=== PATIENT | female | born 1995 | race Caucasian/White ===

== ENCOUNTER 2023-01-17 13:02 | Emergency (ER) | payer MEDICAID, SELFPAY ==
[2023-01-17 13:14] VITALS: BP 116/76; PULSE 93; RESP 18; TEMP 36.8; O2SAT 99; BMI 22.1
[2023-01-17 14:00] VITALS: BP 108/77; PULSE 92; RESP 16; O2SAT 100
--- NOTE | 2023-01-17 14:03 | ED_ITS ---
HPI - Abdominal Pain General: Chief Complaint: Abdominal Pain Stated Complaint: abd pain Bloody stool Time Seen by Provider: 01/17/23 13:38 Source: patient Mode of arrival: ambulatory History of Present Illness: 27-year-old female who presents to the emergency room with complaint of abdominal pain she also bit of bloody stools she has noticed some bulging in her midline abdominal wall and concerned about hernia this morning she had a little bit of streaking blood in her stool she has had that intermittently in the past. No vomiting no diarrhea no fever sweats chills no dysuria urgency or frequency MD elicited complaint: abdominal pain Severity: mild Exacerbating factors: nothing Relieving factors: nothing Associated Symptoms: Reports hematochezia; Denies anorexia, belching, bloating, change in bowel habits, change in stool character, chills, coffee ground emesis, constipation, GI cramping, diarrhea, dyspepsia, dysuria, excessive flatus, fever(s), heartburn, hematuria, hematemesis, fecal incontinence, loose stools, melena, nausea, poor appetite, syncope and vomiting Review of Systems Const: Denies: fever(s) or chills ENMT: Denies: throat pain, ear or mastoid pain, nasal discharge or nasal congestion Card: Denies: chest pain, palpitations, irregular heart rhythm, edema or syncope Resp: Denies: dyspnea, productive cough or non-productive cough GI: Reports: hematochezia; Denies: abdominal pain, nausea, vomiting, hematemesis, coffee ground emesis, heartburn, diarrhea, constipation, bloating, GI cramping, belching, excessive flatus, fecal incontinence, change in bowel habits, change in stool character or melena : Denies: dysuria, urinary frequency, urinary urgency or hematuria Skin/Breast: Denies: rash or pruritus Physical Exam Const: GENERAL APPEARANCE: cooperative and comfortable ORIEN TATION/CONSCIOUSNESS: Yes awake, Yes oriented to person, Yes oriented to place and Yes oriented to time HENMT: COMMON NORMALS: normocephalic, atraumatic and hearing grossly normal bilaterally HEAD & SCALP: normocephalic and atraumatic Resp: COMMON NORMALS: normal respiratory effort, No retractions, No use of accessory muscles and clear to auscultation bilaterally AUSCULTATION: clear to auscultation bilaterally Cardio: COMMON NORMALS: regular rate, regular rhythm and No murmurs present (Cardio) RATE: regular rate RHYTHM: regular rhythm GI: COMMON NORMALS: Soft to palpation and No hepatosplenomegaly present AUSCULTATION: Yes normoactive bowel sounds PALPATION: Yes Soft to palpation, No Tenderness to palpation present (GI), No Guarding due to palpation present (GI) and Yes No hepatosplenomegaly present OTHER: Palpable rectus diastasis defect at the midline no abdominal wall hernias nontender on exam. : COMMON NORMALS: Yes no CVA tenderness BLADDER/KIDNEY EXAM: Yes no CVA tenderness Back/Pelvis: COMMON NORMALS: no CVA tenderness Extremity: COMMON NORMALS: normal to inspection, capillary refill normal, no clubbing, cyanosis or edema, no calf tenderness and no pedal edema Neuro: SENSORIUM/ORIENTATION: Yes oriented to person, Yes oriented to place and Yes oriented to time Skin: COMMON NORMALS: no rashes or lesions noted GENERAL SKIN EXAM: no rashes or lesions noted Course 2 Vital Signs: Vital signs: Vital Signs Temperature 98.2 F 01/17/23 13:14 Pulse Rate 89 01/17/23 15:00 Respiratory Rate 16 01/17/23 15:00 Blood Pressure 101/64 01/17/23 15:00 Pulse Oximetry 99 01/17/23 15:00 Oxygen Delivery Me thod Room Air 01/17/23 14:00 MDM - Abdominal Pain Medical Decision Making Labs unremarkable. Exam no acute abdomen she does have a easily palpable rectus diastasis no entrapped bowel no incarcerated hernia on exam. Patient is essentially pain-free she is concerned about the appearance of rectus diastasis anticipation that it may get trapped we discussed this with her. Recommend she follow-up with her primary care doctor. As to the rectal bleeding that she has had has been intermittent she does have a history of hemorrhoids if it persists or worsens recheck with primary care and they can direct further work-up. Medical Records I reviewed the patient's medical records. Lab Data I reviewed the patient's lab results. 01/17/23 14:01 01/17/23 14:01 Labs/Radiology: Laboratory Results WBC 9.0 10^3/uL (4.0-10.0) 01/17/23 14:01 RBC 4.85 10^6/uL (4.1-5.3) 01/17/23 14:01 Hgb 14.6 g/dL (11.5-15.3) 01/17/23 14:01 Hct 44.6 % (37.0-47.0) 01/17/23 14:01 MCV 92.0 fl (81-99) 01/17/23 14:01 MCH 30.1 pg (28.0-34.0) 01/17/23 14:01 MCHC 32.7 g/dL (30.0-36.0) 01/17/23 14:01 RDW 13.1 % (12.1-15.1) 01/17/23 14:01 Plt Count 272 10^3/cmm (130-400) 01/17/23 14:01 MPV 10.5 fL (7.4-10.4) H 01/17/23 14:01 Neut % (Auto) 64.9 % 01/17/23 14:01 Lymph % (Auto) 27.5 % 01/17/23 14:01 [place] % (Auto) 6.7 % 01/17/23 14:01 Eos % (Auto) 0.4 % 01/17/23 14:01 Baso % (Auto) 0.2 % 01/17/23 14:01 Neut # (Auto) 5.82 10^3/uL (1.8-7.7) 01/17/23 14:01 Lymph # (Auto) 2.5 10^3/uL (0.8-4.8) 01/17/23 14:01 [place] # (Auto) 0.6 10^3/uL (0.2-0.9) 01/17/23 14:01 Eos # (Auto) 0.0 10^3/uL (0.0-0.8) 01/17/23 14:01 Baso # (Auto) 0.0 10^3/uL (0.0-0.1) 01/17/23 14:01 Nucleated RBC % (auto) 0 % 01/17/23 14:01 Nucleated RBCs # 0.0 /100WBC 01/17/23 14:01 Sodium 139 mmol/L (136-145) 01/17/23 14:01 Potassium 3.9 mmol/L (3.5-5.1) 01/17/23 14:01 Chloride 104 mmol/L (98-107) 01/17/23 14:01 Carbon Dioxide 24 mmol/L (22-29) 01/17/23 14:01 Anion Gap 14.9 (5-19) 01/17/23 14:01 BUN 8 mg/dL (6-20) 01/17/23 14:01 Creatinine 0.6 mg/dL (0.5-0.9) 01/17/23 14:01 GFR Calculation 118.2 mL/min (90-130) 01/17/23 14:01 Glucose 85 mg/dL (65-115) 01/17/23 14:01 Calculated Osmolality 286 mOsm/kg (285-295) 01/17/23 14:01 Calcium 9.2 mg/dL (8.5-10.5) 01/17/23 14:01 Total Bilirubin 0.4 mg/dL (0.15-1.2) 01/17/23 14:01 AST 16 U/L (0-32) 01/17/23 14:01 ALT 12 U/L (0-33) 01/17/23 14:01 Alkaline Phosphatase 61 U/L (35-105) 01/17/23 14:01 Total Protein 7.3 g/dL (6.6-8.7) 01/17/23 14:01 Albumin 4.5 g/dL (3.5-5.2) 01/17/23 14:01 Globulin 2.8 g/dL (1.3-4.6) 01/17/23 14:01 Lipase 24 U/L (13-60) 01/17/23 14:01 HCG, Qual Negative (Negative) 01/17/23 14:01 Urine Color Yellow (Yellow) 01/17/23 14:01 Urine Appearance Clear (CLEAR) 01/17/23 14:01 Urine pH 7 (5-7) 01/17/23 14:01 Ur Specific [place] 1.010 (1.005-1.030) 01/17/23 14:01 Urine Protein Neg (Negative) 01/17/23 14:01 Urine Glucose (UA) Norm (Normal) 01/17/23 14:01 Urine Ketones Negative (Negative) 01/17/23 14:01 Urine Blood Neg (Negative) 01/17/23 14:01 Urine Nitrate Negative (Negative) 01/17/23 14:01 Urine Bilirubin Neg (Negative) 01/17/23 14:01 Urine Urobilinogen Norm mg/dL (Negative) 01/17/23 14:01 Ur Leukocyte Esterase Negative (Negative) 01/17/23 14:01 Discharge Plan Discharge Patient Disposition: Home Clinical Impression: Rectus diastasis, Hemorrhoids Condition: Stable Discharge Orders: Discharge ED (Routine); Ordered 01/17/23 Ordered By: Wade Salinas Referrals: Tato Beard MD [Primary Care Provider] - Patient Instructions: Opioid Safety, Pain Management Activity Restrictions/Additional Instructions: If the rectal bleeding recurs or persists follow-up with your primary care doctor. 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
[2023-01-17 14:14] LABS: Add Urine Microscopic? NO; Charge for UA Resulting for Rev
[2023-01-17 14:15] LABS: Basophils % 0.2 %; Eosinophils % 0.4 %; Hematocrit 44.6 % (37.0-47.0); Hemoglobin 14.6 g/dL (11.5-15.3); Lymphocytes # 2.5 10^3/uL (0.8-4.8); Lymphocytes % 27.5 %; Mean Corpuscular HGB Conc 32.7 g/dL (30.0-36.0); Mean Corpuscular Hemoglobin 30.1 pg (28.0-34.0); Mean Platelet Volume 10.5 fL (7.4-10.4); Monocytes # 0.6 10^3/uL (0.2-0.9); Monocytes % 6.7 %; Neutrophils # 5.82 10^3/uL (1.8-7.7); Neutrophils % 64.9 %; Nucleated Red Blood Cells % 0 %; Platelet Count 272 10^3/cmm (130-400); Red Blood Count 4.85 10^6/uL (4.1-5.3); Red Cell Distribution Width 13.1 % (12.1-15.1)
[2023-01-17 14:30] VITALS: BP 97/72; PULSE 85; RESP 16; O2SAT 97
[2023-01-17 14:30] LABS: HCG, Serum Qual Negative (Negative)
[2023-01-17 14:32] LABS: Alanine Aminotransferase 12 U/L (0-33); Albumin Level 4.5 g/dL (3.5-5.2); Alkaline Phosphatase 61 U/L (35-105); Anion Gap 14.9 (5-19); Aspartate Amino Transferase 16 U/L (0-32); Blood Urea Nitrogen 8 mg/dL (6-20); Calcium 9.2 mg/dL (8.5-10.5); Carbon Dioxide 24 mmol/L (22-29); Chloride 104 mmol/L (98-107); Globulin 2.8 g/dL (1.3-4.6); Glomerular Filtration Rate 118.2 mL/min (90-130); Glucose 85 mg/dL (65-115); Lipase 24 U/L (13-60); Osmolality Calculated 286 mOsm/kg (285-295); Potassium 3.9 mmol/L (3.5-5.1); Sodium 139 mmol/L (136-145); Total Bilirubin 0.4 mg/dL (0.15-1.2); Total Protein 7.3 g/dL (6.6-8.7)
[2023-01-17 14:33] LABS: Bilirubin Urine Neg (Negative); Blood Urine Neg (Negative); Glucose Urine UA Norm (Normal); Ketones Urine Negative (Negative); Leukocyte Esterase Urine Negative (Negative); Nitrate Urine Negative (Negative); Protein Urine Neg (Negative); Urine Appearance Clear (CLEAR); Urine Color Yellow (Yellow); Urobilinogen Urine Norm (Negative); pH Urine 7 (5-7)
[2023-01-17 15:00] VITALS: BP 101/64; PULSE 89; RESP 16; O2SAT 99
[2023-01-17 15:09] VITALS: BP 101/64; PULSE 93; RESP 16; O2SAT 93
== END 2023-01-17 15:10 | disposition home or self-care (01) ==
PROVIDERS: Emergency Provider Family Medicine; PCP Family Medicine
DX: M62.08 Separation of muscle (nontraumatic), other site (principal); K64.9 Unspecified hemorrhoids
CPT/HCPCS: 80053; 81003; 83690; 84703; 85025; 99283